=== PATIENT | female | born 1965 | race Caucasian/White ===

== ENCOUNTER 2019-01-31 17:38 | Emergency (ER) | payer BC ==
[~2019-01-31] VITALS: Ht 154.9 cm; Wt 46.3 kg
[2019-01-31 17:44] VITALS: Ht 154.9 cm; Wt 46.3 kg
[2019-01-31 19:17] VITALS: BP 117/68
== END 2019-01-31 19:17 | disposition home or self-care (01) ==
LOC: ED 17:38
DX: T50.B95A Adverse effect of other viral vaccines, initial encounter (principal); J45.909 Unspecified asthma, uncomplicated; Z88.0 Allergy status to penicillin; Z88.1 Allergy status to other antibiotic agents; Y92.89 Other specified places as the place of occurrence of the external cause
CPT/HCPCS: J7613; Q0163